=== PATIENT | female | born 1960 | race Hispanic/Latino ===

== ENCOUNTER 2017-03-05 18:01 | Emergency (ER) | payer MEDICAID ==
[2017-03-05 19:06] LABS: Anion Gap 22 mmol/L; BUN/Creatinine Ratio 16.25; Blood Urea Nitrogen 13 mg/dL (7-17); Calcium 9.3 mg/dL (8.4-10.2); Carbon Dioxide 24 mmol/L (22-30); Chloride 94.3 mmol/L (98-107); Glucose 85 mg/dL (65-100); Sodium 136 mmol/L (137-145)
[2017-03-05 19:09] LABS: Basophils % (Auto) 0.6 % (0.0-1.8); Eosinophils % (Auto) 1.2 % (0.0-4.3); Hematocrit 43.2 % (30.3-42.9); Hemoglobin 14.4 gm/dl (10.1-14.3); Mean Corpuscular HGB Conc 33 % (30-34); Mean Corpuscular Hemoglobin 28 pg (28-32); Mean Corpuscular Volume 85 fl (79-97); Red Blood Count 5.08 M/mm3 (3.65-5.03); Red Cell Distribution Width 14.6 % (13.2-15.2); White Blood Count 9.3 K/mm3 (4.5-11.0)
[2017-03-05 19:24] LABS: Platelet Count 153 K/mm3 (140-440)
[2017-03-05 20:09] LABS: Urine Drugs of Abuse Note Disclamer
[2017-03-05 20:22] LABS: Bilirubin,Urine NEG (Negative); Blood,Urine NEG (Negative); Ketones,Urine NEG (Negative); Leukocyte Esterase,Urine LG (Negative); Nitrite,Urine NEG (Negative); Protein,Urine <15 mg/dL mg/dL (Negative); Urobilinogen,Urine < 2.0 mg/dL (<2.0)
--- NOTE | 2017-03-05 23:30 | Emergency Department Report ---
ED Psych HPI - General Chief Complaint: Chest Pain Stated Complaint: SUICIDAL/CHEST PAINS Time Seen by Provider: 03/05/17 23:24 Source: patient Mode of arrival: Ambulatory - History of Present Illness MD Complaint: suicidal ideation, feels depressed -: Gradual Associated Psychiatric Symptoms: depression, suicidal ideation History of same: Yes Quality: constant Improves With: none Worsens With: none Context: not taking psychiatric Associated Symptoms: denies: confusion, headache, shortness of breath, nausea, vomiting, syncope, insomnia Treatments Prior to Arrival: none If Self Harm: admits thoughts of - Related Data Allergies Allergy/AdvReac Type Severity Reaction Status Date / Time No Known Allergies Allergy Unverified 03/05/17 18:20 ED Review of Systems ROS: Stated complaint: SUICIDAL/CHEST PAINS Other details as noted in HPI Comment: All other systems reviewed and negative ED Past Medical Hx - Past Medical History Hx GERD: Yes Hx Arthritis: Yes Hx Psychiatric Treatment: Yes (Bipolar, PTSD, Depression) Hx COPD: Yes Additional medical history: Herinated disc - Surgical History Past Surgical History?: Yes Hx Appendectomy: Yes Additional Surgical History: L ovarian cyst removal, tonsilectomy, bladder surgery - Social History Smoking Status: Current Every Day Smoker Substance Use Type: None ED Physical Exam - General Limitations: No Limitations General appearance: alert, in no apparent distress - Head Head exam: Present: atraumatic, normocephalic - Eye Eye exam: Present: normal appearance, PERRL - ENT ENT exam: Present: normal exam, normal orophraynx, mucous membranes moist - Neck Neck exam: Present: normal inspection - Respiratory Respiratory exam: Present: normal lung sounds bilaterally. Absent: respiratory distress - Cardiovascular Cardiovascular Exam: Present: regular rate, normal rhythm. Absent: systolic murmur, diastolic murmur, rubs, gallop - GI/Abdominal GI/Abdominal exam: Present: soft, normal bowel sounds - Extremities Exam Extremities exam: Present: normal inspection - Back Exam Back exam: Present: normal inspection - Neurological Exam Neurological exam: Present: alert, oriented X3 - Psychiatric Psychiatric exam: Present: normal affect, depressed, suicidal ideation. Absent : agitated - Skin Skin exam: Present: warm, dry, intact, normal color. Absent: rash ED Course Vital Signs 03/05/17 18:12 Temperature 98.8 F Pulse Rate 90 Blood Pressure 129/84 O2 Sat by Pulse 96 Oximetry ED Medical Decision Making - Lab Data Result diagrams: 03/05/17 18:26 03/05/17 18:26 - EKG Data -: EKG Interpreted by Me - EKG Data Interpretation: no acute changes - Radiology Data Radiology results: image reviewed - Medical Decision Making patient will need pysch consult and possibly transfer, labs negative , no chest pain at this time, eating at the bedside, 1013 form in the chart Critical care attestation.: If time is entered above; I have spent that time in minutes in the direct care of this critically ill patient, excluding procedure time. ED Disposition Clinical Impression: Suicidal ideation, Depression Disposition: DC/TX-65 PSY HOSP/PSY UNIT Is pt being admited?: No Does the pt Need Aspirin: No Condition: Stable Referrals: PRIMARY CARE, [Primary Care Provider] - 3-5 Days
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
--- NOTE | 2017-03-07 12:30 | Progress Note ---
Subjective - Reason for Consult Reason for consult: depression Mental Status Exam - Vital signs Last Vital Signs Temp 98.3 F 03/07/17 10:27 Pulse 68 03/07/17 10:27 Resp 18 03/07/17 10:27 BP 122/76 03/07/17 10:27 Pulse Ox 97 03/07/17 10:27 Assessment and Plan Clinical examination today, patient remains withdrawn and depressed. Patient continues to have sleep difficulty. Patient reports that she was having diarrhea all night due to cashing irritability. Etiology is unknown. At the current time I discussed restarting her mood stabilizer Depakote. An increasing the dose for Seroquel. MENTAL STATUS EXAM: General Appearance: Dressed in hospital gown, in acute distress, obese Sensorium/Consciousness: alert and responding to external stimuli Eye Contact: limited Attitude / Behavior: cooperative, but guarded Psychomotor & Musculoskeletal Activity: WNL Mood: Still depressed Affect: constricted Speech / Language: normal Thought Processes: Perseverative Thought Content: Passive SI Perception: no AVH Orientation: person, place, time, situation Judgment What would you do if you smelled smoke in a crowded movie theater?: Limited Insight: poor Intelligence Vocabulary, general fund of knowledge, educational level: Average Capacity of ADLs: Independent INITIAL PLAN OF CARE AND TREATMENT GOALS: 3 Seroquel to 300 mg at bedtime Start Depakote ER 500 every 12 hours Obtain LFTs amylase lipase 7 days after initiation of Depakote
[2017-03-07] MEDS ORDERED: ALUM-MAG HYDROX-SIMETH 200-200-20MG/5ML PO PRN (14:12)
[2017-03-07] MEDS ORDERED: MILK OF MAGNESIA PO PRN (14:12)
[2017-03-07] MEDS ORDERED: TYLENOL PO PRN (14:12)
[2017-03-07] MEDS ORDERED: PROVENTIL IH PRN ×2 (16:59→19:47)
[2017-03-07] MEDS ORDERED: TRAMADOL 100 MG PO PRN (19:27)
[2017-03-07] MEDS ORDERED: ULTRAM PO PRN (19:46)
[2017-03-07] MEDS ORDERED: PULMICORT IH SCH (20:00)
[2017-03-07] MEDS ORDERED: BROVANA NEBU IH SCH (20:00)
[2017-03-07] MEDS ORDERED: LYRICA 150 MG PO SCH (22:00)
[2017-03-07] MEDS ORDERED: SYMBICORT IH SCH (22:00)
[2017-03-07] MEDS: LYRICA PO SCH (22:01)
[2017-03-07] MEDS: VALIUM PO SCH (22:01)
[2017-03-08 08:00] VITALS: BP 113/77
[2017-03-08] MEDS ORDERED: PROTONIX PO SCH (10:00)
[2017-03-08] MEDS ORDERED: NON-FORMULARY (Omeprazole 40 MG) PO SCH (10:00)
[2017-03-08] MEDS: LYRICA PO SCH (10:13)
[2017-03-08] MEDS: VALIUM PO SCH (10:13)
== END 2017-03-08 13:47 ==
LOC: ED 18:01 → EEVIPCON 18:01 → ED 03-08 13:47
DX: R45.851 Suicidal ideations (principal); F32.9 Major depressive disorder, single episode, unspecified; J44.9 Chronic obstructive pulmonary disease, unspecified; K21.9 Gastro-esophageal reflux disease without esophagitis; M19.90 Unspecified osteoarthritis, unspecified site; F17.200 Nicotine dependence, unspecified, uncomplicated
CPT/HCPCS: 36415; 80048; 80307; 81001; 84484; 85025; 93005; 93010; 94640; 99285; G0480; 80320

== ENCOUNTER 2017-04-26 20:36 | Emergency (ER) | payer MEDICAID ==
--- NOTE | 2017-04-27 03:03 | Emergency Department Report ---
ED Fall HPI - General Chief Complaint: Fall Stated Complaint: FALL Time Seen by Provider: 04/27/17 02:46 Source: patient Mode of arrival: Ambulatory - History of Present Illness Initial Comments: 56-year-old female past medical history schizophrenia, COPD presents with complaint of mechanical fall down steps today at her living facility. Patient states that she had tripped downstairs at her living facility. Denies any loss of consciousness. Primarily complaining of upper neck and lower back pain. Patient is ambulatory without assistance. Also states that she has noticed some bug bites on her extremities and is concerned she may have been exposed to bedbugs. States she tripped down the steps. she is awake alert and oriented 3 , visibly ambulatory in examination room without assistance. Denies headache dizziness chest pain or any shortness of breath worse than her baseline. MD Complaint: fall -: This evening Fall From: down stairs (#) (7) Fall Witnessed: yes, by bystander Place Fall Occurred: home Loss of Consciousness: none Prolonged Down Time?: no Symptoms Prior to Fall: none Location: neck, back Severity: mild Severity scale (0 -10): 5 Quality: aching Context: tripped/slipped Associated Symptoms: denies - Related Data Home Medications Medication Instructions Recorded Confirmed Last Taken Omeprazole 40 mg PO QDAY 03/06/17 04/14/17 Unknown Prazosin 3 mg PO HS 03/06/17 04/14/17 Unknown Proventil 0.083% NEBS 90 mcg IH 4XD PRN 03/06/17 04/14/17 Unknown Symbicort 80-4.5 (Nf) 2 puff IH BID 03/06/17 04/14/17 Unknown Depakote 1 mg PO BID 04/14/17 04/14/17 04/12/17 08:00 SEROquel 300 mg PO BID 04/14/17 04/14/17 04/12/17 08:00 traZODone 150 mg PO HS 04/14/17 04/14/17 04/12/17 10:00 Previous Rx's Medication Instructions Recorded Last Taken Type Ciprofloxacin [Ciprofloxacin ORAL 500 mg PO Q12H #14 ml 04/17/17 Unknown Rx LIQ] Pregabalin [Lyrica] 150 mg PO BID 30 Days 04/17/17 Unknown Rx traMADol [Ultram 50 MG tab] 50 mg PO Q6H PRN #14 tablet 04/17/17 Unknown Rx Cephalexin [Keflex] 500 mg PO Q12HR #14 cap 04/27/17 Unknown Rx Mupirocin [Bactroban 2% OINT] 1 applic TP TID #1 tube 04/27/17 Unknown Rx Naproxen [Naprosyn TAB] 375 mg PO BID PRN #20 tablet 04/27/17 Unknown Rx Allergies Allergy/AdvReac Type Severity Reaction Status Date / Time No Known Allergies Allergy Unverified 03/05/17 18:20 ED Review of Systems ROS: Stated complaint: FALL Other details as noted in HPI Constitutional: denies: chills, fever Eyes: denies: eye pain, eye discharge, vision change ENT: denies: ear pain, throat pain Respiratory: denies: cough, shortness of breath, wheezing Cardiovascular: as per HPI. denies: chest pain, palpitations Endocrine: no symptoms reported Gastrointestinal: denies: abdominal pain, nausea, diarrhea Genitourinary: denies: urgency, dysuria, discharge Musculoskeletal: denies: back pain, joint swelling, arthralgia Skin: denies: rash, lesions Neurological: denies: headache, weakness, paresthesias Psychiatric: denies: anxiety, depression Hematological/Lymphatic: denies: easy bleeding, easy bruising ED Past Medical Hx - Past Medical History Previous Medical History?: Yes Hx GERD: Yes Hx Arthritis: Yes Hx Psychiatric Treatment: Yes (Bipolar, PTSD, Depression) Hx COPD: Yes Additional medical history: Herinated disc - Surgical History Past Surgical History?: Yes Hx Appendectomy: Yes Additional Surgical History: L ovarian cyst removal, tonsilectomy, bladder surgery - Social History Smoking Status: Current Every Day Smoker Substance Use Type: None - Medications Home Medications: Home Medications Medication Instructions Recorded Confirmed Last Taken Type Omeprazole 40 mg PO QDAY 03/06/17 04/14/17 Unknown History Prazosin 3 mg PO HS 03/06/17 04/14/17 Unknown History Proventil 0.083% NEBS 90 mcg IH 4XD PRN 03/06/17 04/14/17 Unknown History Symbicort 80-4.5 (Nf) 2 puff IH BID 03/06/17 04/14/17 Unknown History Depakote 1 mg PO BID 04/14/17 04/14/17 04/12/17 08:00 History SEROquel 300 mg PO BID 04/14/17 04/14/17 04/12/17 08:00 History traZODone 150 mg PO HS 04/14/17 04/14/17 04/12/17 10:00 History Ciprofloxacin [Ciprofloxacin ORAL 500 mg PO Q12H #14 ml 04/17/17 Unknown Rx LIQ] Pregabalin [Lyrica] 150 mg PO BID 30 Days 04/17/17 Unknown Rx traMADol [Ultram 50 MG tab] 50 mg PO Q6H PRN #14 tablet 04/17/17 Unknown Rx Cephalexin [Keflex] 500 mg PO Q12HR #14 cap 04/27/17 Unknown Rx Mupirocin [Bactroban 2% OINT] 1 applic TP TID #1 tube 04/27/17 Unknown Rx Naproxen [Naprosyn TAB] 375 mg PO BID PRN #20 tablet 04/27/17 Unknown Rx ED Physical Exam - General Limitations: No Limitations General appearance: alert, in no apparent distress - Head Head exam: Present: atraumatic, normocephalic - Eye Eye exam: Present: normal appearance, PERRL, EOMI - ENT ENT exam: Present: mucous membranes moist - Neck Neck exam: Present: normal inspection, full ROM (neck flexion and extension intact) - Respiratory Respiratory exam: Present: normal lung sounds bilaterally. Absent: respiratory distress - Cardiovascular Cardiovascular Exam: Present: regular rate, normal rhythm. Absent: systolic murmur, diastolic murmur, rubs, gallop - GI/Abdominal GI/Abdominal exam: Present: soft, normal bowel sounds - Extremities Exam Extremities exam: Present: normal inspection - Back Exam Back exam: Present: normal inspection, paraspinal tenderness (lumbar paraspinal tenderness on exam, no midline thoracic tenderness on exam) - Neurological Exam Neurological exam: Present: alert, oriented X3, CN II-XII intact, normal gait - Psychiatric Psychiatric exam: Present: normal affect, normal mood - Skin Skin exam: Present: warm, dry, intact, normal color. Absent: rash ED Course Vital Signs 04/26/17 21:17 Temperature 97.9 F Pulse Rate 90 Respiratory 20 Rate Blood Pressure 140/95 O2 Sat by Pulse 97 Oximetry ED Medical Decision Making - Medical Decision Making A/P: Mechanical fall, possible bedbug bites 1-CT head, C-spine, L-spine within normal limits, patient is ambulatory, strength 5 out 5 both lower extremities no saddle paresthesias reported by the patient no bladder or bowel incontinence. No clinical signs of cauda equina or cord compression on exam or history 2-naproxen when necessary for pain 3-hydrocortisone cream, topical mupirocin to bug bites 4- follow up with primary care doctor Critical care attestation.: If time is entered above; I have spent that time in minutes in the direct care of this critically ill patient, excluding procedure time. ED Disposition Clinical Impression: Fall down stairs Qualifiers: Encounter type: initial encounter Qualified Code(s): W10.8XXA - Fall (on) (from ) other stairs and steps, initial encounter Lower back pain Qualifiers: Chronicity: acute Back pain laterality: bilateral Sciatica presence: without sciatica Qualified Code(s): M54.5 - Low back pain Bug bite of finger Qualifiers: Encounter type: initial encounter Qualified Code(s): S60.469A - Insect bite ( nonvenomous) of unspecified finger, initial encounter; W57.XXXA - Bitten or stung by nonvenomous insect and other nonvenomous arthropods, initial encounter Disposition: DC-01 TO HOME OR SELFCARE Is pt being admited?: No Does the pt Need Aspirin: No Condition: Undetermined Instructions: Insect Bite or Sting (ED), Acute Low Back Pain (ED), Fall Prevention (ED) Prescriptions: Cephalexin [Keflex] 500 mg PO Q12HR #14 cap Mupirocin [Bactroban 2% OINT] 1 applic TP TID #1 tube Naproxen [Naprosyn TAB] 375 mg PO BID PRN #20 tablet PRN Reason: Pain Referrals: TERRY MARTINEZ MD, PHD [Staff Physician] - 3-5 Days Forms: Work/School Release Form(ED) Time of Disposition: 04:45
[2017-04-27] MEDS ORDERED: NORCO 5/325 PO ONE ×2 (03:05→04:53)
--- NOTE | 2017-04-27 04:12 | Cat Scan Report ---
FINAL REPORT PROCEDURE: CT CERVICAL SPINE WO CON TECHNIQUE: Computerized tomography of the cervical spine was performed from the skull base to T1 without contrast material. HISTORY: s/p fall down stairs COMPARISON: No prior studies are available for comparison. FINDINGS: Skull base and foramen magnum are intact. Cervical vertebrae are intact. There are no fractures or malalignments. There is degenerative loss of disc height with osteophytic ridging and facet arthropathy at C5-C6 and C6-C7. There is no facet dislocation. The prevertebral soft tissues are normal in thickness. IMPRESSION: There is no acute traumatic injury of the cervical spine..
--- NOTE | 2017-04-27 04:35 | Cat Scan Report ---
FINAL REPORT PROCEDURE: CT HEAD/BRAIN WO CON TECHNIQUE: Computerized tomography of the head was performed without contrast material. HISTORY: s/p fall down stairs COMPARISON: No prior studies are available for comparison. FINDINGS: Skull and scalp: Normal. Paranasal sinuses: Normal. Ventricles and subarachnoid spaces: Normal. Cerebrum: No evidence of hemorrhage, acute infarction or mass . Cerebellum and brainstem: No evidence of hemorrhage, acute infarction or mass. Vasculature: Normal. Comments: None. IMPRESSION: There is no skull fracture. There is no intracranial hemorrhage.
--- NOTE | 2017-04-27 04:39 | Cat Scan Report ---
FINAL REPORT PROCEDURE: CT LUMBAR SPINE WO CON TECHNIQUE: Computerized axial tomography of the lumbar spine was performed from T12 to the sacrum without contrast material. HISTORY: s/p fall down stairs COMPARISON: No prior studies are available for comparison. FINDINGS: There are no fractures. There is grade 1 anterior spondylolisthesis of L4 over L5 due to facet arthropathy. There is degenerative disc change and osteophytic ridging and facet arthropathy bilaterally at L4-5 and L5-S1. There is severe left foraminal stenosis at L5-S1 due to osteophytic ridging. The sacrum and sacroiliac joints are intact. Paraspinal soft tissues are normal in thickness. There are incidental gallstones. IMPRESSION: There are degenerative changes as described. There is no acute traumatic injury.
[2017-04-27 05:04] VITALS: BP 150/95
== END 2017-04-27 05:02 | disposition home or self-care (01) ==
LOC: ED 20:36
DX: S60.469A Insect bite (nonvenomous) of unspecified finger, initial encounter (principal); M54.5 Low back pain; K21.9 Gastro-esophageal reflux disease without esophagitis; M19.90 Unspecified osteoarthritis, unspecified site; F31.9 Bipolar disorder, unspecified; F43.10 Post-traumatic stress disorder, unspecified; F32.9 Major depressive disorder, single episode, unspecified; J44.9 Chronic obstructive pulmonary disease, unspecified; F17.200 Nicotine dependence, unspecified, uncomplicated; Z90.49 Acquired absence of other specified parts of digestive tract; Z90.89 Acquired absence of other organs; W57.XXXA Bitten or stung by nonvenomous insect and other nonvenomous arthropods, initial encounter; Y93.89 Activity, other specified; Y99.8 Other external cause status; Y92.89 Other specified places as the place of occurrence of the external cause
CPT/HCPCS: 70450; 72125; 72131

== ENCOUNTER 2017-04-27 16:03 | Emergency (ER) | payer MEDICAID ==
[2017-04-27 16:27] VITALS: BP 134/92
--- NOTE | 2017-04-27 18:49 | Emergency Department Report ---
ED Rash HPI - HPI Chief Complaint: Skin Rash Stated Complaint: BURNING SENSATION ON SKIN Time Seen by Provider: 04/27/17 18:31 Duration: 1 Day Location: Neck, Back, Upper Extremities, Lower Extremities Suspected Cause: Other (unknown) Rash Symptoms: Yes Itching, No Facial Swelling, No Tongue/Oral Swelling, No Breathing Difficulties, No Choking Sensation, No Wheezing/Dyspnea, No Peeling, No Blistering, No Fever, No Lightheaded, No Malaise, No Myalgias Severity: moderate ED Review of Systems ROS: Stated complaint: BURNING SENSATION ON SKIN Other details as noted in HPI Constitutional: denies: chills, fever Eyes: as per HPI ENT: denies: ear pain, throat pain Respiratory: denies: cough, shortness of breath, wheezing Cardiovascular: denies: chest pain, palpitations Endocrine: no symptoms reported Gastrointestinal: denies: abdominal pain, nausea, diarrhea Genitourinary: denies: urgency, dysuria, discharge Musculoskeletal: denies: back pain, joint swelling, arthralgia Skin: rash, pruritus. denies: lesions, change in color, change in hair/nails Neurological: denies: headache, weakness, paresthesias Psychiatric: denies: anxiety, depression Hematological/Lymphatic: denies: easy bleeding, easy bruising ED Past Medical Hx - Past Medical History Previous Medical History?: Yes Hx GERD: Yes Hx Arthritis: Yes Hx Psychiatric Treatment: Yes (Bipolar, PTSD, Depression) Hx COPD: Yes Additional medical history: Herinated disc - Surgical History Past Surgical History?: Yes Hx Appendectomy: Yes Additional Surgical History: L ovarian cyst removal, tonsilectomy, bladder surgery - Social History Smoking Status: Current Every Day Smoker Substance Use Type: Alcohol - Medications Home Medications: Home Medications Medication Instructions Recorded Confirmed Last Taken Type Omeprazole 40 mg PO QDAY 03/06/17 04/14/17 Unknown History Prazosin 3 mg PO HS 03/06/17 04/14/17 Unknown History Proventil 0.083% NEBS 90 mcg IH 4XD PRN 03/06/17 04/14/17 Unknown History Symbicort 80-4.5 (Nf) 2 puff IH BID 03/06/17 04/14/17 Unknown History Depakote 1 mg PO BID 04/14/17 04/14/17 04/12/17 08:00 History SEROquel 300 mg PO BID 04/14/17 04/14/17 04/12/17 08:00 History traZODone 150 mg PO HS 04/14/17 04/14/17 04/12/17 10:00 History Ciprofloxacin [Ciprofloxacin ORAL 500 mg PO Q12H #14 ml 04/17/17 Unknown Rx LIQ] Pregabalin [Lyrica] 150 mg PO BID 30 Days 04/17/17 Unknown Rx traMADol [Ultram 50 MG tab] 50 mg PO Q6H PRN #14 tablet 04/17/17 Unknown Rx Cephalexin [Keflex] 500 mg PO Q12HR #14 cap 04/27/17 Unknown Rx Mupirocin [Bactroban 2% OINT] 1 applic TP TID #1 tube 04/27/17 Unknown Rx Naproxen [Naprosyn TAB] 375 mg PO BID PRN #20 tablet 04/27/17 Unknown Rx Pregabalin [Lyrica] 150 mg PO BID #28 capsule 04/27/17 Unknown Rx Triamcinolone Aceton 0.1% (Nf) 1 applic TP BID #1 tube 04/27/17 Unknown Rx [Kenalog (NF)] hydrOXYzine HCL [Atarax] 25 mg PO Q6HR PRN #30 tablet 04/27/17 Unknown Rx Rash Exam - Exam General: Vital signs noted. No distress. Alert and acting appropriately. HEENT: No Periorbital Edema, No Conjuctival Injection, No Chemosis, No Perioral Edema, No Tongue Edema, No Uvular Edema, No Compromised Airway, No Drooling Lungs: Yes Good Air Exchange, No Wheezes, No Ronchi, No Stridor, No Cough, No Labored Respirations, No Retractions, No Use of Accessory Muscles, No Other Abnormal Lung Sounds Heart: Yes Regular, No Murmur Skin: Yes Urticarial Rash, Yes Erythema, Yes Encrustations, No Maculopapular Rash, No Morbilliform rash, No Bulla(e), No Excoriations, No Weeping, No Tenderness, No Edema, No Other Other: Positive: Abdomen Normal, Neurologic Normal, Musculoskeletal Normal ED Course Vital Signs 04/27/17 16:24 Temperature 97.8 F Pulse Rate 99 H Respiratory 16 Rate Blood Pressure 134/92 O2 Sat by Pulse 95 Oximetry ED Medical Decision Making - Medical Decision Making pt is a56 y/o w/f patient who endorses exposure bed bugs with rash to bilat neck back arms x 2 days moved into senior care yesterday with room other who had bed bugs requesting treatment for same, rash is consistent with insect bites/ bedbugs no rash to webs of hand feet or waistline plan, triamcinolone oint and atarax for itching, pt verbalized agreement and understanding of same, Critical care attestation.: If time is entered above; I have spent that time in minutes in the direct care of this critically ill patient, excluding procedure time. ED Disposition Clinical Impression: Insect bites Qualifiers: Encounter type: initial encounter Qualified Code(s): W57.XXXA - Bitten or stung by nonvenomous insect and other nonvenomous arthropods, initial encounter Bedbug bite Qualifiers: Encounter type: initial encounter Qualified Code(s): W57.XXXA - Bitten or stung by nonvenomous insect and other nonvenomous arthropods, initial encounter Disposition: DC-01 TO HOME OR SELFCARE Is pt being admited?: No Does the pt Need Aspirin: No Condition: Good Instructions: Insect Bite or Sting (ED) Prescriptions: hydrOXYzine HCL [Atarax] 25 mg PO Q6HR PRN #30 tablet PRN Reason: Itching Triamcinolone Aceton 0.1% (Nf) [Kenalog (NF)] 1 applic TP BID #1 tube Referrals: PRIMARY CARE, [Primary Care Provider] - 3-5 Days Forms: Work/School Release Form(ED) Time of Disposition: 18:53
== END 2017-04-27 19:03 | disposition home or self-care (01) ==
LOC: ED 16:03
DX: L29.9 Pruritus, unspecified (principal); K21.9 Gastro-esophageal reflux disease without esophagitis; F31.9 Bipolar disorder, unspecified; J44.9 Chronic obstructive pulmonary disease, unspecified; F17.200 Nicotine dependence, unspecified, uncomplicated; W57.XXXA Bitten or stung by nonvenomous insect and other nonvenomous arthropods, initial encounter; Y93.9 Activity, unspecified; Y92.9 Unspecified place or not applicable; Y99.9 Unspecified external cause status
CPT/HCPCS: 99281